=== PATIENT | female | born 1975 | race African-American/Black ===

== ENCOUNTER 2018-09-13 06:10 | Day surgery (SDC) | payer BC ==
[2018-09-02 15:40] VITALS: BMI 45.5
[2018-09-13] MEDS ORDERED: ePHEDrine SULFATE 50 MG/1 ML AMPULE ONE (06:56)
[2018-09-13] MEDS ORDERED: SUCCINYLCHOLINE CHLORIDE 200 MG/10 ML VIAL ONE (06:56)
[2018-09-13] MEDS ORDERED: PROPOFOL 20 ML ONE ×3 (06:56→06:57)
[2018-09-13] MEDS ORDERED: MIDAZOLAM HCL 2 MG/2 ML SINGLE DOSE VIAL ONE (06:57)
[2018-09-13] MEDS ORDERED: ROCURONIUM BROMIDE 50 MG/5 ML VIAL ONE ×2 (06:57)
[2018-09-13] MEDS ORDERED: DEXAMETHASONE SOD PHOSPHATE 4 MG/1 ML VIAL ONE (06:59)
[2018-09-13] MEDS ORDERED: ceFAZolin SODIUM 1 GM VIAL ONE (06:59)
[2018-09-13] MEDS ORDERED: ONDANSETRON 4 MG/2 ML VIAL ONE (06:59)
[2018-09-13] MEDS ORDERED: KETOROLAC TROMETHAMINE 30 MG/1 ML VIAL ONE (06:59)
--- NOTE | 2018-09-13 07:30 | HP ---
Satellite H - Chief Complaint Chief Complaint: Recurrent RUQ pain. Recurrent biliary colic History of Present Illness: Recurrent biliary colic. Gallbladder with stones. Hepatomegaly on ultrasound History Source: Patient Limitations to Obtaining History: No Limitations - Past Medical History Allergies/Adverse Reactions: Allergies Allergy/AdvReac Type Severity Reaction Status Date / Time No Known Allergies Allergy Verified 09/02/18 15:30 Cardiovascular: Yes: HTN, Hyperlipdemia ...LMP Comment: has IUD Additional Medical History: C section. Bunionectomy - Current Medications Current Medications: Home Medications Medication Instructions Recorded Aspirin [Adult Aspirin Regimen] 81 mg PO DAILY 09/02/18 Atorvastatin Ca [Lipitor] 20 mg PO DAILY 09/02/18 Hydrochlorothiazide [Hctz -] 25 mg PO DAILY 09/02/18 Metoprolol Succinate [Toprol Xl] 25 mg PO DAILY 09/02/18 Potassium Chloride [K-Dur -] 10 meq PO BID 09/02/18 Satellite Physical Exam - Physical Examination Vital Signs: Vital Signs Period Temp Pulse Resp BP Sys/Thacker Pulse Ox Last 24 Hr 98.9 F 72 18 162/82 97 General Appearance: Well Nourished Lung: Clear to auscultation Heart: Regular rate & rhythm Abdomen: Soft, No tenderness Neurological: Alert, Oriented Satellite Impression/Plan - Impression/Plan Impression: Recurrent biliary colic. Hepatomegaly Operative Procedure: Laparoscopic possible open cholecystectomy, wedge liver biopsy Date to be Performed: 09/13/18
[2018-09-13] MEDS ORDERED: POLYMYXIN B SULFATE 500,000 UNIT VIAL ONE (07:39)
[2018-09-13] MEDS ORDERED: BACITRACIN 15 GM TUBE TOPICAL OINTMENT ONE (07:39)
[2018-09-13] MEDS ORDERED: GENTAMICIN SO4 80 MG/2 ML VIAL ONE (07:39)
[2018-09-13] MEDS ORDERED: DESFLURANE GAS 240 ML BOTTLE IH ONE (08:50)
[2018-09-13] MEDS ORDERED: oxyCODONE HCL 5 MG TABLET PO PRN (08:54)
[2018-09-13] MEDS ORDERED: ONDANSETRON 4 MG/2 ML VIAL IVPUSH PRN ×2 (08:54→09:55)
[2018-09-13] MEDS ORDERED: LACTATED RINGERS SOLUTION 1,000 ML IV SCH (09:00)
[2018-09-13] MEDS ORDERED: BUPIVACAINE HCL 0.25% 125 MG/50 ML VIAL ONE (09:05)
[2018-09-13] MEDS ORDERED: BUPIVACAINE HCL/PF 0.25% (2.5MG/ML) 10 ML VIAL IJ ONE (09:30)
[2018-09-13] MEDS ORDERED: morphine SULFATE 4 MG/ML VIAL IVPUSH PRN (09:55)
[2018-09-13] MEDS ORDERED: ACETAMINOPHEN 325 MG TABLET (FP) PO PRN (09:55)
[2018-09-13] MEDS ORDERED: D5-1/2NS+20 MEQ KCL - 20 MEQ/1,000 ML INFUS.BAG IV SCH (10:00)
--- NOTE | 2018-09-13 10:04 | OP ---
Operative Note - Note: Operative Date: 09/13/18 Pre-Operative Diagnosis: Recurrent biliary colic. Hepatomegaly Operation: Diagnositic laparoscopy. Laparoscopic lysis of adhesions. Laparoscopic cholecystectomy. Laparoscopic wedge liver biopsy. Open umbilical hernia repair Post-Operative Diagnosis: Other (Recurrent biliary colic, hepatomegaly, umbilical hernia, intraabdominal adhesions) Surgeon: Bruno Fernando Senior Account Director: Roger Hernández Anesthesia: General Specimens Removed: Gallbladder. Liver biopsy Estimated Blood Loss (mls): 30 Operative Report Dictated: Yes
[2018-09-13 11:20] LABS: HEMATOCRIT 35.3 % (32.4-45.2); HEMOGLOBIN 11.2 GM/dl (10.7-15.3); MCH 28.2 pg (25.7-33.7); MCHC 31.9 g/dl (32.0-36.0); MEAN CELL VOLUME 88.6 fl (80-96); MEAN PLT VOLUME 7.5 fl (7.5-11.1); PLATELET COUNT 252 K/MM3 (134-434); RBC 3.98 M/mm3 (3.60-5.2); RDW 14.2 % (11.6-15.6); WHITE BLOOD COUNT 9.4 K/mm3 (4.0-10.8)
[2018-09-13 11:36] LABS: CALCIUM 8.8 mg/dl (8.5-10); CREATININE 0.7 mg/dl (0.55-1.3); POTASSIUM 3.4 mmol/L (3.5-5.1)
--- NOTE | 2018-09-13 12:35 | OP ---
DATE OF OPERATION: 09/13/2018 SURGEON: Bruno Fernando MD OPERATIONAL TRAINER: Roger Hernández MD Place of Surgery: [place] [id number] PREOPERATIVE DIAGNOSES: Recurrent biliary colic and hepatomegaly. POSTOPERATIVE DIAGNOSES: Recurrent biliary colic, hepatomegaly, intraabdominal adhesions, and umbilical hernia. PROCEDURE: 1. Diagnostic laparoscopy 2. Laparoscopic lysis of adhesions 3. Laparoscopic cholecystectomy 4. Laparoscopic wedge liver biopsy 5. Open umbilical hernia - primary repair. SPECIMENS: Gallbladder, liver biopsy. ESTIMATED BLOOD LOSS: 30 mL. DRAINS: None. ANESTHESIA: General endotracheal. REASON FOR PROCEDURE: This is a 43-year-old female who was sent to the office for recurrent history of biliary colic as well as hepatomegaly seen on ultrasound. Because of this, she was consented for laparoscopic, possible open, cholecystectomy and wedge liver biopsy. The risks and benefits of the procedure were explained. These included bleeding, infection, hernia, DE, DVT, PE, injury to surrounding structures, including the liver, stomach, duodenum, bowel, spleen, biliary duct, vessel injury, nerve injury, bile leak, retained stone, as some of the complications. She understood and signed informed consent. DESCRIPTION OF PROCEDURE: She was placed supine on the operating room table. She underwent general endotracheal intubation. The abdomen was prepped and draped in the usual sterile fashion. A timeout was performed. An incision was made into the umbilicus, and the skin and subcutaneous dissected down. A hernia was noted and the hernia was used in order to place the initial 12-mm trocar. Pneumoperitoneum was insufflated. Diagnostic laparoscopy was performed and exam of the abdominal cavity was as noted. A 5-mm trocar was placed in the subxiphoid area and 2 in the right upper quadrant. The patient was placed in reverse Trendelenburg, right side up position. The gallbladder was retracted cephalad and laterally and immediately there was noted to be dense adhesions. The adhesions were to the surrounding structures, including bowel, liver, as well as duodenum. These were carefully taken down using combination of electrocautery as well as sharp dissection. Once all adhesions were carefully taken down, dissection was performed. The cystic duct followed by cystic artery were circumferentially dissected, clipped and transected. The gallbladder was removed off the liver bed using electrocautery. The liver bed was noted to have hemostasis with electrocautery. Copious irrigation and suction was performed. Liver biopsy was then performed using the hook electrocautery. A portion of the left lobe of the liver was excised and sent off the field. Again hemostasis to this area was also noted. Further copious irrigation and suction performed until clear. The gallbladder and liver biopsy were removed, gallbladder through the EndoCatch bag. Multiple large stones were noted, and the incision at the umbilicus needed to be extended, along with the fascia, in order to remove the gallbladder. Once fully removed, pneumoperitoneum was desufflated, all trocars were removed. The umbilicus and the umbilical hernia was closed using multiple 0 Vicryl sutures in [id number] fashion. The fascia was noted to be closed. A 3-0 Vicryl was used to close the deep subcutaneous tissue and 4-0 Biosyn used to close all the skin incisions. Marcaine was injected in all skin incisions. Sterile dressings were placed. The patient tolerated the procedure well, was transferred to recovery room in stable condition. Vanesa [id number] MTDD
[2018-09-13 13:19] VITALS: BP 132/70; PULSE 69; TEMP 97.9
[2018-09-13] MEDS ORDERED: POTASSIUM CHLORIDE TABS 10 MEQ TABLET.ER (FP) PO SCH (22:00)
[2018-09-13] MEDS ORDERED: ATORVASTATIN CA 20 MG TABLET (FP) PO SCH (22:00)
[2018-09-14] MEDS ORDERED: metoPROLOL SUCCINATE 25 MG TAB.SR.24H (FP) PO SCH (10:00)
[2018-09-14] MEDS ORDERED: HYDROCHLOROTHIAZIDE 25 MG TABLET (FP) PO SCH (10:00)
--- NOTE | 2018-09-15 12:44 | PATH ---
Surgical Pathology Report Patient Name: ALEKSANDRA KOEHLER [facility]. Rec. #: [id number] /Age/Gender: 1975 (Age: 43) / F Account: [id number] Location: [facility] AMBULATORY Taken: 09/13/2018 Received: 09/14/2018 Reported: 09/15/2018 Physicians: Bruno Fernando M.D. Specimen(s) Received A: LIVER BIOPSY B: GALLBLADDER Clinical History Morbid obesity Final Diagnosis A. LIVER, BIOPSY: LIVER PARENCHYMA WITH PATCHY MILD STEATOSIS (~15-20%). NO INCREASE IN IRON AND FIBROSIS ON PERFORMED SPECIAL STAINS (IRON AND TRICHROME). B. GALLBLADDER, CHOLECYSTECTOMY: CHRONIC CHOLECYSTITIS WITH CHOLELITHIASIS. Comment: Part A, Subcapsular biopsy with thermal artifact. Electronically Signed Crystal Schmitz M.D. Gross Description A. Received in formalin labeled "liver" is a 1.8 x 1.1 x 0.8 cm jenkins portion of friable tissue, consistent with a portion of liver. The specimen is bisected and entirely submitted in one cassette. B. Received in formalin, labeled "gallbladder," is a 12.5 x 3.5 x 3.5 cm. gallbladder with a 0.2 cm. in length portion of cystic duct attached. The outer surface is jenkins-petersen and varies from smooth to shaggy. The lumen contains brown-green, sludgelike bile as well as abundant yellow, irregular to fragmented choleliths ranging from 0.1-1.1 cm in greatest dimension. The mucosa is green with focal erosions. The wall of the gallbladder averages 0.1 cm. in thickness. Want Ad Receiver sections are submitted in one cassette. /09/14/2018 saudi09/14/2018
== END 2018-09-13 13:20 | disposition home or self-care (01) ==
LOC: FASU 06:10
PROVIDERS: ATTEND Surgery
PROC: 0WQF0ZZ Repair Abdominal Wall, Open Approach (ICD-10-PCS; 2018-09-13)
PROC: 0FT44ZZ Resection of Gallbladder, Percutaneous Endoscopic Approach (ICD-10-PCS; principal; 2018-09-13 08:28)
PROC: 0FB24ZX Excision of Left Lobe Liver, Percutaneous Endoscopic Approach, Diagnostic (ICD-10-PCS; 2018-09-13 08:28)
DX: K80.50 Calculus of bile duct without cholangitis or cholecystitis without obstruction (principal); R16.0 Hepatomegaly, not elsewhere classified; K66.0 Peritoneal adhesions (postprocedural) (postinfection); K42.9 Umbilical hernia without obstruction or gangrene
CPT/HCPCS: 36415; 80048; 84703; 85027; 88304-TC; 88305-TC; 88313-TC; 94760